=== PATIENT | male | born 1995 | race Caucasian/White ===

== ENCOUNTER 2020-01-22 14:38 | Emergency (ER) | payer SELFPAY ==
[~2020-01-22] VITALS: Ht 177.8 cm; Wt 72.7 kg
[2020-01-22] MEDS ORDERED: TETANUS AND DIPHTHERIA TOX/PF 0.5 ML DISP.SYRIN. VAX IM ONE (14:45)
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
[2020-01-22 15:59] VITALS: BP 114/65
== END 2020-01-22 16:06 | disposition home or self-care (01) ==
LOC: ER 14:38
DX: S01.01XA Laceration without foreign body of scalp, initial encounter (principal); F17.200 Nicotine dependence, unspecified, uncomplicated; W34.00XA Accidental discharge from unspecified firearms or gun, initial encounter; Y93.89 Activity, other specified; Y92.89 Other specified places as the place of occurrence of the external cause; Y99.8 Other external cause status
CPT/HCPCS: 12001; 70450; 90471; 90714; 99283; 99284-25